=== PATIENT | female | born 1985 | race American Indian/Alaskan Native ===

== ENCOUNTER 2017-06-23 10:22 | Outpatient (CLI) | payer OTHER ==
[2017-06-23 10:41] VITALS: BP 127/87
[2017-06-23 12:32] LABS: Basophils % (Auto) 0.4 % (0.0-1.8); Eosinophils % (Auto) 0.9 % (0.0-4.3); Hematocrit 41.7 % (30.3-42.9); Hemoglobin 13.1 gm/dl (10.1-14.3); Mean Corpuscular HGB Conc 31 % (30-34); Mean Corpuscular Volume 70 fl (79-97); Platelet Count 192 K/mm3 (140-440); Red Blood Count 5.95 M/mm3 (3.65-5.03); Red Cell Distribution Width 15.7 % (13.2-15.2)
[2017-06-23 12:39] LABS: Mean Corpuscular Hemoglobin 22 pg (28-32)
[2017-06-23 13:09] LABS: HIV-1 Antigen p24 Non React (Non React); HIVR-1/2 Ab Non React (Non React)
[2017-06-23 13:49] LABS: Urine Drugs of Abuse Note Disclamer
[2017-06-23 13:58] LABS: Bilirubin,Urine NEG (Negative); Blood,Urine NEG (Negative); Ketones,Urine NEG (Negative); Leukocyte Esterase,Urine TR (Negative); Mucus,Urine FEW /HPF; Nitrite,Urine NEG (Negative); Protein,Urine <15 mg/dL mg/dL (Negative); Urobilinogen,Urine < 2.0 mg/dL (<2.0)
--- NOTE | 2017-06-23 14:51 | Ultrasound Report ---
BIOPHYSICAL PROFILE: 2 - breathing movements 2 - movements 2 - posture and tone 2 - Qualitative amniotic fluid volume 8 - TOTAL SCORE OF POSSIBLE 8 Heart Rate (bpm) 154
--- NOTE | 2017-06-23 14:55 | Ultrasound Report ---
Gestation: single Position: cephalic Amniotic Fluid: MALACHI = 7.8 cm Placenta: fundal Placental Grade: 2 Heart Rate: 154 BPM BPD: 9.1 cm = 36 w 5 d HC: 34.0 cm = 39 w 1 d AC: 30.9 cm = 34 w 6 d FL: 7.8 cm = 40 w d HC/AC Ratio: 1.10 Cephalic Index: 78.4 Estimated Weight: 3055 grams LMP: Clinical age = 40 w 4 d EDC: 06/19/17 US Gest. Age = 37 w 5 d EDC: 07/09/17
[2017-06-23 16:33] LABS: HIV-1 Antigen p24 Non React (Non React); HIVR-1/2 Ab Non React (Non React)
== END 2017-06-23 14:25 | disposition home or self-care (01) ==
LOC: TRG 10:22
PROVIDERS: ATTEND Obstetrics & Gynecology
DX: O48.0 Post-term pregnancy (principal); Z3A.40 40 weeks gestation of pregnancy
CPT/HCPCS: 36415; 59025; 76816; 76819; 80074; 80307; 81001; 82962; 85025; 86592; 86762; 86850; 86900; 86901; 87116; 87806

== ENCOUNTER 2017-06-27 06:10 | Inpatient (IN) | payer OTHER ==
[2017-06-27] MEDS ORDERED: Fluarix Quad 2017-2018(36 MOS+) IM ONE (08:04)
[2017-06-27] MEDS ORDERED: LACTATED RINGERS 1,000 ML ONE (08:42)
[2017-06-27] MEDS ORDERED: ePHEDrine SULFATE IV PRN ×2 (08:43→11:49)
[2017-06-27] MEDS ORDERED: ZOFRAN IV PRN ×2 (08:43→16:20)
[2017-06-27] MEDS ORDERED: MINERAL OIL PO PRN (08:43)
[2017-06-27] MEDS ORDERED: BRETHINE IVP PRN (08:43)
[2017-06-27] MEDS ORDERED: SUBLIMAZE IV PRN (08:43)
[2017-06-27] MEDS ORDERED: XYLOCAINE 2% INFILTRATI ONE (08:43)
[2017-06-27] MEDS ORDERED: BRETHINE SUB-Q PRN (08:43)
[2017-06-27] MEDS ORDERED: STADOL IV PRN (08:43)
[2017-06-27] MEDS ORDERED: POLYCILLIN/NS 2 GM/100 ML 2 GM/100 ML BAG IV ONE ×2 (08:43→08:46)
[2017-06-27] MEDS ORDERED: NARCAN 0.4 MG/1 ML IV PRN (08:43)
[2017-06-27] MEDS ORDERED: PHENERGAN PO PRN ×2 (08:43→16:20)
[2017-06-27] MEDS: LACTATED RINGERS 1,000 ML IV SCH ×2 (08:50→10:43)
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
[2017-06-27] MEDS ORDERED: PITOCin/NS 20 UNIT/1000ML DRIP 20 UNITS/1,000 ML BAG IV SCH ×2 (09:00→17:00)
[2017-06-27] MEDS ORDERED: PITOCin/NS 30 UNIT/500ML 30 UNITS/500 ML BAG IV SCH ×2 (09:00)
[2017-06-27 09:16] LABS: Hemoglobin 13.4 gm/dl (10.1-14.3); Mean Corpuscular HGB Conc 32 % (30-34); Mean Corpuscular Volume 70 fl (79-97); Platelet Count 167 K/mm3 (140-440); Red Blood Count 5.99 M/mm3 (3.65-5.03); Red Cell Distribution Width 15.4 % (13.2-15.2)
[2017-06-27 09:25] LABS: Mean Corpuscular Hemoglobin 22 pg (28-32)
[2017-06-27] MEDS ORDERED: ePHEDrine SULFATE ONE (11:22)
--- NOTE | 2017-06-27 11:49 | Anesthesia Consultation ---
Anesthesia Consult and Med Hx Date of service: 06/27/17 - Airway Anesthetic Teeth Evaluation: Good ROM Head & Neck: Adequate Mental/Hyoid Distance: Adequate Mallampati Class: Class II Intubation Access Assessment: Probably Good - Pre-Operative Health Status ASA Pre-Surgery Classification: ASA2, Emergency Proposed Anesthetic Plan: Epidural, Spinal - Pulmonary Hx Asthma: No COPD: No Hx Pneumonia: No - Cardiovascular System Hx Hypertension: No - Central Nervous System Hx Seizures: No Hx Psychiatric Problems: No - Endocrine Hx Renal Disease: No Hx End Stage Renal Disease: No Hx Hypothyroidism: No Hx Hyperthyroidism: No - Hematic Hx Anemia: No Hx Sickle Cell Disease: No - Other Systems Hx Alcohol Use: Yes
[2017-06-27] MEDS ORDERED: fentaNYL-BUPIV 2 MCG/ML-0.125% 200 MCG/100 ML BAG EPIDURAL SCH (12:00)
[2017-06-27] MEDS ORDERED: POLYCILLIN/NS 1 GM/50 ML 1 GM/50 ML BAG IV SCH (12:45)
--- NOTE | 2017-06-27 16:15 | Procedure Note ---
OB Delivery Note - Delivery Date of Delivery: 06/27/17 Surgeon: REUBEN PARNELL Estimated blood loss: 300cc - Vaginal Delivery presentation: vertex Delivery position: OA Intrapartum events: mult.variable deceleratio Delivery induction: none Delivery augmentation: rupture of membranes, pitocin Delivery monitor: external FHT, external uterine Route of delivery: vacuum extraction (3 pulls, no pop-offs) Indicators for instrumentation: nonreassuring FHR tracing Delivery placenta: spontaneous Delivery cord: 3 umbilical vessels Episiotomy: none Delivery laceration: 2nd degree (perineal/vaginal) Delivery repair: vicryl Anesthesia: epidural Delivery comments: Infant delivered OA with the aid of a vacuum, 3 pulls and no pop-offs, and placed on Mom's chest for [id number] bonding and delayed cord clamping. RT/Peds in attendance. - Infant A at 1 minute: 8 at 5 minutes: 9 Infant Gender: Female ([id number])
[2017-06-27] MEDS ORDERED: BENADRYL PO PRN (16:20)
[2017-06-27] MEDS ORDERED: DULCOLAX PR PRN (16:20)
[2017-06-27] MEDS ORDERED: LANSINOH TP PRN (16:20)
[2017-06-27] MEDS ORDERED: PHENERGAN PR PRN (16:20)
[2017-06-27] MEDS ORDERED: TUCKS PAD TP PRN (16:20)
[2017-06-27] MEDS ORDERED: NORCO 5/325 PO PRN (16:20)
[2017-06-27] MEDS ORDERED: TYLENOL PO PRN (16:20)
[2017-06-27] MEDS ORDERED: MILK OF MAGNESIA PO PRN (16:20)
[2017-06-27] MEDS ORDERED: SODIUM CHLORIDE FLUSH SYRINGE 10 ML IV NR (17:00)
[2017-06-27] MEDS: MOTRIN PO SCH (20:07)
[2017-06-27] MEDS ORDERED: DERMOPLAST TP PRN (20:08)
[2017-06-27] MEDS: FEOSOL PO SCH (21:11)
[2017-06-27] MEDS: COLACE PO SCH (21:11)
[2017-06-28] MEDS: MOTRIN PO SCH ×5 (04:14→23:35)
[2017-06-28 05:39] LABS: Hematocrit 38.9 % (30.3-42.9); Hemoglobin 12.3 gm/dl (10.1-14.3)
[2017-06-28] MEDS ORDERED: BOOSTRIX IM ONE (06:00)
[2017-06-28] MEDS ORDERED: M-M-R II VACCINE SUB-Q ONE (06:00)
--- NOTE | 2017-06-28 08:56 | Progress Note ---
Assessment and Plan PPD# 1 s/p Vacuum assisted vaginal delivery -Doing well P: -Continue routine care -Anticipate discharge in 24-48 hours - Patient Problems (1) Status post vacuum-assisted vaginal delivery Current Visit: Yes Status: Acute Subjective - Subjective Date of service: 06/28/17 Principal diagnosis: PPD# 1 Interval history: Patient seen and examined, stable doing well no issues. Patient reports: appetite normal, voiding normally, pain well controlled, flatus , ambulating normally, no dizzy ambulation, no nauseated [place]: doing well Objective - Vital Signs Latest vital signs: Vital Signs Temp Pulse Resp BP BP Pulse Ox 06/28/17 04:40 98.2 F 98 H 20 134/73 06/28/17 00:00 98.4 F 99 H 20 126/69 06/27/17 20:05 98.0 F 96 H 20 130/82 06/27/17 18:40 98.9 F 98 H 20 123/81 06/27/17 17:33 96.6 F L 99 H 16 124/71 124/71 06/27/17 15:42 100 H 127/70 06/27/17 15:27 90 120/70 06/27/17 15:14 89 100 06/27/17 15:12 92 H 126/79 06/27/17 14:57 96 H 104/64 06/27/17 14:43 81 116/76 06/27/17 14:27 88 125/79 06/27/17 14:12 84 123/76 06/27/17 13:57 90 124/78 06/27/17 13:42 90 133/83 06/27/17 13:28 85 133/81 06/27/17 13:23 86 96 06/27/17 13:18 89 94 06/27/17 13:13 85 94 06/27/17 13:12 89 145/65 06/27/17 13:08 89 97 06/27/17 13:03 90 99 06/27/17 12:58 98 H 98 06/27/17 12:57 97 H 115/76 06/27/17 12:50 84 98 06/27/17 12:45 90 99 06/27/17 12:42 100 H 130/80 06/27/17 12:40 95 H 100 06/27/17 12:38 98 H 85 06/27/17 12:35 86 100 06/27/17 12:33 91 H 88 06/27/17 12:30 88 99 06/27/17 12:27 88 131/86 06/27/17 12:25 90 93 06/27/17 12:24 89 92 06/27/17 12:19 87 100 06/27/17 12:14 85 100 06/27/17 12:12 83 128/80 06/27/17 12:09 83 96 06/27/17 12:04 86 96 06/27/17 11:59 85 98 06/27/17 11:54 89 119/74 98 06/27/17 11:52 95 H 115/74 06/27/17 11:50 95 H 124/77 06/27/17 11:49 92 H 97 06/27/17 11:48 89 121/66 06/27/17 11:45 103 H 133/63 06/27/17 11:44 97 H 97 06/27/17 11:42 97 H 126/85 06/27/17 11:40 100 H 131/86 06/27/17 11:39 99 H 98 06/27/17 11:38 100 H 143/93 06/27/17 11:34 106 H 99 06/27/17 11:33 112 H 132/85 06/27/17 11:07 93 H 147/77 147/77 06/27/17 10:36 101 H 125/96 06/27/17 10:06 83 122/76 06/27/17 09:34 88 121/70 06/27/17 09:33 97.7 F 88 16 121/70 Intake and Output 06/27/17 06/28/17 06/28/17 22:59 06:59 14:59 Intake Total 120 240 Output Total 700 Balance -580 240 Intake: Oral 120 240 Output: Urine 700 Void 700 Other: Total, Intake Amount 120 120 Total, Output Amount 400 Estimated Blood Loss 400 - Exam Abdomen: Present: normal appearance, soft. Absent: distention, tenderness, guarding, rigidity Uterus: Present: fundal height below umbilicus. Absent: tenderness Extremities: Present: normal - Labs Labs: Abnormal lab results 06/27/17 Range/Units 09:01 RBC 5.99 H (3.65-5.03) M/mm3 MCV 70 L (79-97) fl MCH 22 L (28-32) pg RDW 15.4 H (13.2-15.2) %
--- NOTE | 2017-06-28 08:58 | Discharge Summary ---
Providers - Providers Date of Admission: 06/27/17 08:19 Date of discharge: 06/29/17 Attending physician: REUBEN PARNELL Primary care physician: REUBEN PARNELL Hospitalization Reason for admission: active labor, IUP at term Delivery: vacuum extraction Episiotomy: none Laceration: 2nd degree Incision: dry, intact Other procedures: none complications: none Discharge diagnosis: IUP at term delivered Bow baby: female Hospital course: Uncomplicated course Condition at discharge: Good Disposition: DC-01 TO HOME OR SELFCARE - Discharge Diagnoses (1) Status post vacuum-assisted vaginal delivery Status: Acute Plan - Discharge Medications Prescriptions: Ferrous Sulfate [Feosol 325 MG tab] 325 mg PO BID #60 tablet HYDROcodone/APAP 5-325 [[place] 5/325] 1 each PO Q6HR PRN #20 tablet PRN Reason: Pain Ibuprofen [Motrin] 800 mg PO Q8HR PRN #30 tablet PRN Reason: Moder Pain Unrelieved By Pass Christian Vit W-Ca,Fe,FA(<1 mg) [ Vitamins] 1 each PO DAILY #30 tablet - Provider Discharge Summary Activity: no sex for 6 weeks, no heavy lifting 4 weeks, no strenuous exercise Diet: routine Additional instructions: [] Smoking cessation referral if applicable(refer to patient education folder for contact #) [] Refer to [facility]'s [facility] Booklet Call your doctor immediately for: * Fever > 100.5 * Heavy vaginal bleeding ( >1 pad per hour) * Severe persistent headache * Shortness of breath * Reddened, hot, painful area to leg or breast * Drainage or odor from incision. * Keep incision clean and dry at all times and follow doctor's instructions regarding bathing/showering - Follow up plan Follow up: REUBEN PARNELL MD [Primary Care Provider] - 6 Weeks
[2017-06-28] MEDS: FEOSOL PO SCH ×2 (12:20→21:43)
[2017-06-28] MEDS: COLACE PO SCH ×2 (12:21→21:43)
[2017-06-28] MEDS: PRENATAL VITAMIN PO SCH (18:25)
[2017-06-29] MEDS: MOTRIN PO SCH ×2 (05:25→13:17)
[2017-06-29] MEDS: FEOSOL PO SCH (13:18)
[2017-06-29] MEDS: COLACE PO SCH (13:19)
[2017-06-29] MEDS: PRENATAL VITAMIN PO SCH (13:20)
[2017-06-29 14:20] VITALS: BP 128/80
== END 2017-06-29 17:45 | disposition home or self-care (01) | DRG 775 ==
LOC: TRG 06:10 → LD 08:19 → OB 18:10
PROVIDERS: ADMIT Obstetrics & Gynecology; ATTEND Obstetrics & Gynecology
PROC: 10D07Z6 Extraction of Products of Conception, Vacuum, Via Natural or Artificial Opening (ICD-10-PCS; principal; 2017-06-27)
PROC: 0KQM0ZZ Repair Perineum Muscle, Open Approach (ICD-10-PCS; 2017-06-27)
PROC: 3E0S3BZ Introduction of Anesthetic Agent into Epidural Space, Percutaneous Approach (ICD-10-PCS; 2017-06-27)
PROC: 00HU33Z Insertion of Infusion Device into Spinal Canal, Percutaneous Approach (ICD-10-PCS; 2017-06-27)
PROC: 3E0234Z Introduction of Serum, Toxoid and Vaccine into Muscle, Percutaneous Approach (ICD-10-PCS; 2017-06-28)
DX: O76 Abnormality in fetal heart rate and rhythm complicating labor and delivery (principal); O70.1 Second degree perineal laceration during delivery; Z37.0 Single live birth; Z3A.41 41 weeks gestation of pregnancy; Z23 Encounter for immunization
CPT/HCPCS: 36415; 59025; 85014; 85018; 85027; 86592; 86850; 86900; 86901; 90471; 90686; 90715; 99211; A6250; G0008; G0463; J0290; J2405; J2590; J3010; J7120